=== PATIENT | female | born 1985 | race African-American/Black ===

== ENCOUNTER 2019-01-09 17:38 | Emergency (ER) | payer SELFPAY ==
[2019-01-09 17:40] VITALS: BP 140/69; PULSE 108; TEMP 98; BMI 23.9
[2019-01-09] MEDS ORDERED: diphenhydrAMINE HCL 25 MG CAPSULE (FP) PO ONE (18:24)
--- NOTE | 2019-01-09 18:30 | PDOC ---
History of Present Illness - General Chief Complaint: Rash Stated Complaint: RASH Time Seen by Provider: 01/09/19 18:15 History Source: Patient Exam Limitations: No Limitations - History of Present Illness Initial Comments: 01/09/19 18:32 Scaling mildly pruritic rash started on chest wall and spread to torso and back yesterday. No fevers, no recent illness, no one else at home is ill with rash. Past History - Past Medical History Allergies/Adverse Reactions: Allergies Allergy/AdvReac Type Severity Reaction Status Date / Time No Known Allergies Allergy Verified 01/09/19 17:40 COPD: No - Psycho Social/Smoking Cessation Hx Smoking History: Current every day smoker Information on smoking cessation initiated: No Review of Systems - Review of Systems Able to Perform ROS?: Yes Is the patient limited Afghan proficient: Yes Constitutional: Yes: Symptoms Reported, See HPI. No: Chills, Fever, Malaise HEENTM: Yes: See HPI. No: Symptoms Reported Integumentary: Yes: Symptoms Reported, Lesions, Pruritus, Rash Neurological: No: Symptoms reported All Other Systems: Reviewed and Negative *Physical Exam - Vital Signs Last Vital Signs Temp Pulse Resp BP Pulse Ox 98 F 108 H 18 140/69 99 01/09/19 17:39 01/09/19 17:39 01/09/19 17:39 01/09/19 17:39 01/09/19 17:39 - Physical Exam General Appearance: Yes: Nourished, Appropriately Dressed, Mild Distress. No: Apparent Distress HEENT: positive: DIANELYS, Normal ENT Inspection, TMs Normal, Pharynx Normal, Nasal Congestion, Rhinorrhea Neck: positive: Supple. negative: Tender, Lymphadenopathy (R) Respiratory/Chest: positive: Lungs Clear, Normal Breath Sounds Gastrointestinal/Abdominal: positive: Normal Bowel Sounds, Soft Extremity: positive: Normal Capillary Refill Integumentary: positive: Normal Color, Warm, Rash, Other ([facility] [place] patch noted on left flank with multiple other lesions and [place] tree type pattern rash to back all consistent with a pityriasis rosacea appearance) Neurologic: positive: hr clerk II-XII NML intact, Fully Oriented, Alert, Normal Response, Motor Strength 5/5 ED Progress Note - Progress Note Progress Note: 01/09/19 18:32 Pityriasis rosacea, patient consulted friend who is a rn delivery who gave the same diagnosis. We will treat conservatively and give a dose of Benadryl for itching Discharge - Discharge Information Problems reviewed: Yes Clinical Impression/Diagnosis: Pityriasis rosea Condition: Stable Disposition: HOME - Admission No - Follow up/Referral - Patient Discharge Instructions Patient Printed Discharge Instructions: DI for Pityriasis Rosea Additional Instructions: Rest, keep cool and dry- avoid strenuous activity or hot /humid environments Less hot showers, no abrasive soaps but ensure to keep areas clean and as dry as possible May use Benadryl at night for antihistamine, Zyrtec/ Leida or Claritin for daytime antihistamine use to help with itching Be sure to clean bathtub after each use with bleach wipes to avoid contamination of other family members Followup with PMD in one week if no resolution Make appointment with rn delivery for evaluation when possible - Post Discharge Activity
== END 2019-01-09 18:31 | disposition home or self-care (01) ==
LOC: JERFT 17:38
DX: L42 Pityriasis rosea (principal)
CPT/HCPCS: 99281-25

== ENCOUNTER 2020-03-17 09:54 | Emergency (ER) | payer OTHER ==
[2020-03-17 10:11] VITALS: BP 96/59; PULSE 57; TEMP 98; BMI 23.2
[2020-03-17] MEDS ORDERED: METHOCARBAMOL 500 MG TABLET PO ONE (10:44)
[2020-03-17] MEDS ORDERED: KETOROLAC TROMETHAMINE 30 MG/1 ML VIAL IM ONE (10:44)
[2020-03-17] MEDS ORDERED: KETOROLAC TROMETHAMINE 30 MG/1 ML VIAL ONE (11:23)
[2020-03-17] MEDS ORDERED: METHOCARBAMOL 500 MG TABLET ONE (11:23)
== END 2020-03-17 12:44 | disposition home or self-care (01) ==
LOC: JER 09:54
PROC: 3E0233Z Introduction of Anti-inflammatory into Muscle, Percutaneous Approach (ICD-10-PCS; principal; 2020-03-17)
DX: M54.5 Low back pain (principal)
CPT/HCPCS: 72100-TC-FY; 99284-25

== ENCOUNTER 2021-06-05 12:48 | Emergency (ER) | payer OTHER ==
[2021-06-05 12:59] VITALS: BMI 21.4
[2021-06-05] MEDS ORDERED: ACETAMINOPHEN 325 MG TABLET (FP) PO ONE (13:37)
[2021-06-05] MEDS ORDERED: ALBUTEROL SO4 HFA INHALER IH ONE ×2 (13:38→14:54)
[2021-06-05] MEDS ORDERED: ACETAMINOPHEN 325 MG TABLET (FP) ONE (14:54)
[2021-06-05] MEDS ORDERED: KETOROLAC TROMETHAMINE 15 MG/ML VIAL IVPUSH ONE (15:33)
[2021-06-05] MEDS ORDERED: KETOROLAC TROMETHAMINE 30 MG/1 ML VIAL IM ONE (16:49)
[2021-06-05] MEDS ORDERED: KETOROLAC TROMETHAMINE 30 MG/1 ML VIAL ONE (16:52)
[2021-06-05 17:01] VITALS: BP 134/80; PULSE 91; TEMP 99.8
[2021-06-06 14:08] LABS: SARS-CoV-2 NAA Not Detected (Not Detected)
== END 2021-06-05 18:02 | disposition home or self-care (01) ==
LOC: JER 12:48
PROC: 3E023GC Introduction of Other Therapeutic Substance into Muscle, Percutaneous Approach (ICD-10-PCS; principal; 2021-06-05)
PROC: 3E0F7GC Introduction of Other Therapeutic Substance into Respiratory Tract, Via Natural or Artificial Opening (ICD-10-PCS; 2021-06-05)
DX: J11.1 Influenza due to unidentified influenza virus with other respiratory manifestations (principal)
CPT/HCPCS: 71046-TC-FY; 84703; 87804; 99284-25; C9803-CS; U0003; U0005

== ENCOUNTER 2022-05-13 14:22 | Emergency (ER) | payer OTHER ==
[2022-05-13 14:51] VITALS: BMI 28.0
[2022-05-13] MEDS ORDERED: KETOROLAC TROMETHAMINE 15 MG/ML VIAL IVPUSH ONE (14:57)
[2022-05-13] MEDS ORDERED: SODIUM CHLORIDE 0.9% 1000 ML INFUS.BAG IV ONE (14:57)
[2022-05-13] MEDS ORDERED: KETOROLAC TROMETHAMINE 15 MG/ML VIAL ONE (15:16)
[2022-05-13 15:38] LABS: HEMATOCRIT 42.2 % (32.4-45.2); HEMOGLOBIN 13.9 GM/dL (10.7-15.3); MCH 31.5 pg (25.7-33.7); MCHC 32.9 g/dl (32.0-36.0); MEAN CELL VOLUME 95.8 fl (80-96); MEAN PLT VOLUME 8.5 fl (7.5-11.1); PLATELET COUNT 280 10^3/uL (134-434); RBC 4.41 M/mm3 (3.60-5.2); WHITE BLOOD COUNT 20.5 K/mm3 (4.0-10.0)
[2022-05-13 15:47] LABS: INR 1.29 (0.83-1.09); PROTHROMBIN TIME (PATIENT) 14.9 SEC (9.7-13.0)
[2022-05-13 15:49] LABS: ACTIVATED PTT 31.7 SECONDS (25.2-36.5)
[2022-05-13] MEDS ORDERED: AMPICILLIN NA/SULBACTAM NA 3 GM in SODIUM CHLORIDE 100 ML IVPB ONE (15:51)
[2022-05-13 15:52] LABS: CALCIUM 9.7 mg/dL (8.5-10.1)
[2022-05-13 15:53] LABS: ALBUMIN 3.7 g/dl (3.4-5.0); BLOOD UREA NITROGEN 8.2 mg/dL (7-18)
[2022-05-13 15:56] LABS: CREATININE 0.9 mg/dL (0.55-1.3)
[2022-05-13 16:00] LABS: TOT PROT 7.8 g/dl (6.4-8.2)
[2022-05-13 16:27] LABS: ANISOCYTOSIS 0; MACROCYTOSIS 0
[2022-05-13] MEDS ORDERED: ACETAMINOPHEN 1000 MG/100 ML BAG IVPB ONE (17:52)
[2022-05-13] MEDS ORDERED: ACETAMINOPHEN INJECTION 100 ML IVPB ONE (17:55)
[2022-05-13 20:14] VITALS: BP 128/78; PULSE 82; RESP 18; TEMP 98.6
== END 2022-05-13 20:42 | disposition short-term general hospital (02) ==
LOC: JER 14:22
PROC: 3E03329 Introduction of Other Anti-infective into Peripheral Vein, Percutaneous Approach (ICD-10-PCS; principal; 2022-05-13)
PROC: 3E033GC Introduction of Other Therapeutic Substance into Peripheral Vein, Percutaneous Approach (ICD-10-PCS; 2022-05-13)
PROC: 3E033GC Introduction of Other Therapeutic Substance into Peripheral Vein, Percutaneous Approach (ICD-10-PCS; 2022-05-13)
DX: J36 Peritonsillar abscess (principal); R13.12 Dysphagia, oropharyngeal phase
CPT/HCPCS: 36415; 70491-TC; 80053; 84703; 85025; 85610; 85730; 86850; 86900; 86901; 99285-25; Q9967

== ENCOUNTER 2024-06-30 09:46 | Emergency (ER) | payer OTHER ==
[2024-06-30 09:52] VITALS: BP 119/71; PULSE 75; RESP 20; TEMP 98.4; BMI 30.4
[2024-06-30] MEDS: BACITRACIN ZINC 15 GM TUBE TOPICAL OINTMENT TP ONE (10:25)
[2024-06-30] MEDS ORDERED: BACITRACIN ZINC 15 GM TUBE TOPICAL OINTMENT ONE (10:25)
[2024-06-30] MEDS ORDERED: DIPHTH,PERTUSS(ACELL),TET 0.5 ML DISP.SYRIN IM ONE ×2 (10:30→10:35)
[2024-06-30] MEDS: DIPHTH,PERTUSS(ACELL),TET 0.5 ML DISP.SYRIN IM ONE (10:36)
[2024-06-30 12:23] LABS: HCV DIAGNOSTIC IN-HOUSE W/RFLX NON-REACTIVE (NONREACTIVE); HIV INTERPRETATION NEGATIVE (NEGATIVE)
== END 2024-06-30 10:44 | disposition home or self-care (01) ==
LOC: JERFT 09:46
PROC: 3E0234Z Introduction of Serum, Toxoid and Vaccine into Muscle, Percutaneous Approach (ICD-10-PCS; principal; 2024-06-30)
DX: S61.012A Laceration without foreign body of left thumb without damage to nail, initial encounter (principal); Z23 Encounter for immunization; W26.8XXA Contact with other sharp object(s), not elsewhere classified, initial encounter
CPT/HCPCS: 36415; 86803; 87389; 90471; 90715; 99284-25